=== PATIENT | male | born 1965 | race American Indian/Alaskan Native ===

== ENCOUNTER 2017-05-05 04:45 | Emergency (ER) | payer MEDICAID ==
[2017-05-05 04:45] VITALS: BMI 25.7
--- NOTE | 2017-05-05 04:48 | C.PDOC ---
History Of Present Illness pt presents with hematuria of sudden onset as well as dysuria, which started about 2 hours ago. No f/c/n/v. No trauma. Time Seen by Provider: 05/05/17 04:48 History/Exam Limitations: no limitations Onset/Duration Of Symptoms: Hrs Current Symptoms Are (Timing): Still Present Severity: Moderate Pain Scale Rating Of: 4 Quality Of Discomfort: Burning Associated Symptoms: denies: Fever, Chills, Nausea Alleviating Factors: None Recent travel outside of the [place]: No Additional History Per: Family Past Medical History Reviewed: Historical Data, Nursing Documentation, Vital Signs Vital Signs: Last Vital Signs Temp 99.4 F 05/05/17 04:55 Pulse 97 H 05/05/17 04:55 Resp 16 05/05/17 04:55 BP 141/78 05/05/17 04:55 Pulse Ox 97 05/05/17 04:55 - Medical History PMH: Denies: Chronic Kidney Disease Surgical History: Endoscopy, Tonsillectomy - [facility] Procedures EXCISION OF LEFT KNEE JOINT, OPEN APPROACH (02/10/16) EXCISION OF RIGHT KNEE JOINT, OPEN APPROACH (02/10/16) EXCISION OF RIGHT KNEE JOINT, PERC ENDO APPROACH (02/10/16) REPAIR LEFT KNEE TENDON, OPEN APPROACH (02/10/16) REPAIR RIGHT KNEE TENDON, OPEN APPROACH (02/10/16) Family History: States: No Known Family Hx - Social History Hx Alcohol Use: No Hx Substance Use: No - Immunization History Hx Tetanus Toxoid Vaccination: No Hx Influenza Vaccination: No Hx Pneumococcal Vaccination: No Review Of Systems Constitutional: Negative for: Fever, Chills Cardiovascular: Negative for: Chest Pain Respiratory: Negative for: Shortness of Breath Gastrointestinal: Negative for: Nausea, Vomiting, Abdominal Pain Genitourinary: Positive for: Dysuria, Hematuria. Negative for: Penile Discharge , Scrotal Pain, Penile Pain Musculoskeletal: Negative for: Back Pain Skin: Negative for: Rash, Lesions, Jaundice, Bruising Neurological: Negative for: Weakness Psych: Negative for: Anxiety Physical Exam - Physical Exam Appears: Non-toxic, No Acute Distress Skin: Warm, Dry Throat: No Erythema Neck: Supple Chest: Symmetrical Cardiovascular: Rhythm Regular Respiratory: No Rales, No Rhonchi, No Wheezing Gastrointestinal/Abdominal: Soft, No Tenderness, No Distention Back: No CVA Tenderness Male Genital: No Testicular Tenderness, No Testicular Swelling, No Inguinal Tenderness, No Inguinal Swelling, No Scrotal Swelling Extremity: Normal ROM Extremity: Bilateral: Atraumatic Neurological/Psych: Oriented x3, Normal Speech, Normal Cognition Gait: Steady ED Course And Treatment - Laboratory Results Result Diagrams: 05/05/17 06:01 05/05/17 06:23 Pulse Ox Interpretation: Normal Disposition Counseled Patient/Family Regarding: Studies Performed, Diagnosis - Disposition Disposition Time: 04:48 Condition: FAIR - Clinical Impression Clinical Impression: Hematuria Physician Patient Turnover Patient Signed Over To: Dereck Olivera Handoff Comments: pending ct and dispo
[2017-05-05 05:13] LABS: RBC URINE 7 /hpf (0-3); URINE BILIRUBIN NEGATIVE (NEGATIVE); URINE COLOR Yellow (YELLOW); URINE GLUCOSE (UA) NORMAL (Normal); URINE KETONE NEGATIVE (NEGATIVE); URINE LEUKOCYTE ESTERASE TRACE Leu/uL (Negative); URINE PROTEIN NEGATIVE (NEGATIVE); WBC URINE 5 /hpf (0-5)
[2017-05-05 05:44] LABS: URINE BLOOD 1+ (NEGATIVE)
[2017-05-05] MEDS ORDERED: Sodium Chloride 0.9% 1,000 ML IV ONE (05:48)
[2017-05-05 06:05] LABS: BASO % 0.1 % (0.0-2.0); EOS % 0.1 % (0.0-4.0); HEMATOCRIT 44.7 % (35.0-51.0); LYMPH # 0.3 K/uL (1.0-4.3); LYMPH % 4.4 % (20.0-40.0); MEAN CELL VOLUME 91.5 fL (80.0-94.0); MEAN CORPUSCULAR HEMOGLOBIN 29.7 pg (27.0-31.0); MEAN CORPUSCULAR HGB CONC 32.5 g/dL (33.0-37.0); MEAN PLATELET VOLUME 7.7 fL (7.2-11.7); MONO # 0.1 K/uL (0.0-0.8); MONO % 1.1 % (0.0-10.0); PLATELET COUNT 152 K/uL (130-400); RED CELL DISTRIBUTION WIDTH 13.6 % (11.5-14.5); WHITE BLOOD COUNT 7.2 K/uL (4.8-10.8)
[2017-05-05] MEDS ORDERED: Sodium Chloride 0.9% 1,000 ML ONE (06:07)
[2017-05-05 06:35] LABS: CHLORIDE 104 mmol/L (98-107); SODIUM 137 mmol/L (132-148)
[2017-05-05 06:36] LABS: POTASSIUM 4.3 mmol/L (3.6-5.2)
[2017-05-05 06:38] LABS: ALB/GLOB RATIO 1.2 (1.0-2.1); ALKALINE PHOSPHATASE 48 U/L (38-126); ALT/SGPT 26 U/L (21-72); AST/SGOT 33 U/L (17-59); BILIRUBIN,TOTAL 0.7 mg/dL (0.2-1.3); BLOOD UREA NITROGEN 22 mg/dL (9-20); CARBON DIOXIDE 26 mmol/L (22-30); GFR AFRICAN-AMERICAN > 60; GLUCOSE,RANDOM 103 mg/dL (75-110); TOTAL PROTEIN 6.8 g/dL (6.3-8.3)
[2017-05-05 06:39] LABS: CALCIUM 8.6 mg/dl (8.6-10.4)
[2017-05-05 06:56] LABS: NEUTROPHIL 93 % (50-75); TOTAL CELLS COUNTED 100
[2017-05-05 07:32] VITALS: RESP 18
[2017-05-05] MEDS ORDERED: Iodixanol 320 MG/ML 100 ML BOTTLE IV ONE (07:54)
--- NOTE | 2017-05-05 09:50 | CT ---
PROCEDURE: CT Abdomen and Pelvis with contrast HISTORY: pelvic, penile pain COMPARISON: None. TECHNIQUE: Contrast dose: 100 mL Visipaque 320 Radiation dose: Total exam DLP = 487.77 mGy-cm. This CT exam was performed using one or more of the following dose reduction techniques: Automated exposure control, adjustment of the mA and/or kV according to patient size, and/or use of iterative reconstruction technique. FINDINGS: LOWER THORAX: Unremarkable. LIVER: Unremarkable. No gross lesion or ductal dilatation. GALLBLADDER AND BILE DUCTS: Unremarkable. PANCREAS: Unremarkable. No gross lesion or ductal dilatation. SPLEEN: Unremarkable. ADRENALS: Unremarkable. No mass. KIDNEYS AND URETERS: Nonobstructing left lower pole renal calculus, 5 mm. No right renal calculus. No renal mass. No hydronephrosis or hydroureter. VASCULATURE: Unremarkable. No aortic aneurysm. BOWEL: Mild retained feces. No bowel obstruction. No abnormal bowel loops. APPENDIX: Not definitely identified. There is a coarse calcification adjacent to the cecum which could conceivably represent an appendicolith. However, there is no evidence of appendicitis. PERITONEUM: Unremarkable. No free fluid. No free air. LYMPH NODES: Unremarkable. No enlarged lymph nodes. BLADDER: Unremarkable. REPRODUCTIVE: Normal prostate BONES: No acute fracture. OTHER FINDINGS: None. IMPRESSION: 5 mm nonobstructing left lower pole renal calculus. No evidence of urinary tract obstruction. Possible appendicolith adjacent to the cecum without evidence of appendicitis. No other significant abnormality.
[2017-05-05] MEDS ORDERED: cefTRIAXone IV 1 gm in Dextros 1 GM in Dextrose 5% In Water 50 ML IVPB STA (10:15)
[2017-05-05] MEDS ORDERED: cefTRIAXone IV 1 gm in Dextros 50 ML IVPB ONE (10:24)
[2017-05-05 11:24] VITALS: BP 122/71; PULSE 68; TEMP 98.9; O2SAT 97
== END 2017-05-05 11:18 | disposition home or self-care (01) ==
LOC: C.ER 04:45
DX: N20.0 Calculus of kidney (principal); R31.9 Hematuria, unspecified
CPT/HCPCS: 74177; 80053; 81001; 85025; 87086; 96361; 96365; 96375; 99285; J0696; J1885; J7040; Q9967